=== PATIENT | male | born 2000 | race Caucasian/White ===

== ENCOUNTER → 2020-01-01 | Outpatient (REF) | payer OTHER | LOC: M LAB REF 12:58 | PROVIDERS: ATTEND Physician Assistant | DX: Z11.59 Encounter for screening for other viral diseases (principal) ==

== ENCOUNTER → 2020-06-02 | Outpatient (CLI) | payer SELFPAY | LOC: M LABSMTC 12:26 | PROVIDERS: ATTEND Pediatrics | DX: Z20.828 Contact with and (suspected) exposure to other viral communicable diseases (principal) ==